=== PATIENT | male | born 1965 | race Two or more races ===

== ENCOUNTER → 2021-08-19 | Emergency (ER) | payer SELFPAY | END | disposition left against medical advice (07) | LOC: ER 12:59 | DX: Z53.21 Procedure and treatment not carried out due to patient leaving prior to being seen by health care provider (principal) ==

== ENCOUNTER → 2021-08-29 | Outpatient (CLI) | payer BC | END | disposition home or self-care (01) | LOC: RAD 14:57 | PROVIDERS: ATTEND Family Medicine | DX: R05.9 Cough, unspecified (principal) | CPT/HCPCS: 71046 ==

== ENCOUNTER 2022-03-27 10:30 | Outpatient (CLI) | payer BC | END 2022-03-27 23:59 | disposition home or self-care (01) | LOC: RAD 10:30 | PROVIDERS: ATTEND Family Medicine | DX: R91.1 Solitary pulmonary nodule (principal); N28.1 Cyst of kidney, acquired; K76.0 Fatty (change of) liver, not elsewhere classified; M47.814 Spondylosis without myelopathy or radiculopathy, thoracic region | CPT/HCPCS: 71250 ==

== ENCOUNTER 2022-07-21 09:54 | Outpatient (CLI) | payer BC | END 2022-07-21 23:59 | disposition home or self-care (01) | LOC: RAD 09:54 | PROVIDERS: ATTEND Family Medicine | DX: M25.511 Pain in right shoulder (principal) | CPT/HCPCS: 73030 ==

== ENCOUNTER 2022-08-01 08:10 | Outpatient (CLI) | payer BC | END 2022-08-01 23:59 | disposition home or self-care (01) | LOC: LAB 08:10 | PROVIDERS: ATTEND Family Medicine | DX: M25.50 Pain in unspecified joint (principal) | CPT/HCPCS: 36415; 85651; 86038; 86140 ==